=== PATIENT | male | born 1940 | race Caucasian/White ===

== ENCOUNTER 2022-12-23 12:50 | Emergency (ER) | payer MEDICARE, SELFPAY ==
[2022-12-23 12:57] VITALS: BP 117/92; PULSE 70; RESP 16; TEMP 36.4; O2SAT 96
--- NOTE | 2022-12-23 13:06 | ED.GENADUL1 ---
HPI - General Adult General Chief complaint: Urogenital-Male Stated complaint: UTI SYMPTOMS Time Seen by Provider: 12/23/22 13:05 Source: patient Mode of arrival: walk-in History of Present Illness HPI narrative: Patient is a Very pleasant 82-year-old male who is here with his and was sent by his PCP Dr. corral to have a complete urinalysis. Patient's been having some urine sensitivity in the past several days. Patient has no fever, chills, nausea or vomiting. Patient and his just finished having COVID at home for the past couple weeks, patient was on Paxlovid With his in the past 2 weeks. Patient has been sitting around more last few weeks, patient has been increasing fluids, he's had slight increase in urinary frequency in the past several days as well. Patient is a fever or chills. No new flank pain, back pain, no other acute complaints. The pain to testicles, patient states it sensitive when he urinates. . All systems are negative except as noted/marked. All systems reviewed and otherwise negative. . Nurses note and vital signs reviewed and patient is not hypoxic. General: The patient appears well and in no apparent distress. Patient is resting comfortably on cart. Patient is not toxic, lethargic, or listless. Patient looks well, very jovial. Skin: Warm, dry, no pallor noted. There is no rash noted. No petechiae, purpura. Head: Normocephalic, atraumatic Eye: Normal conjunctiva, no drainage, EOMI. PERRL. 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 Ears, Nose, Mouth, and Throat: oral mucosa is moist. Nares patent. Mouth without vesicles. Cardiovascular: Regular Rate and Rhythm, no murmur, gallop, rub Respiratory: Patient is in no distress, no accessory muscle use, lungs are clear to auscultation, no wheezing, rales or rhonchi Back: non-tender, no CVA tenderness bilaterally to percussion. No CT LS midline pain GI: soft, obese, no tenderness to palpation, no masses appreciated. No rebound, guarding, or rigidity noted. No flank pain bilateral, No distention. No flank pain bilateral. No CVA tenderness palpation. : Patient states he had no new rash, no tenderness to Palpation to bilateral, no pain, no new rashes, no signs of trauma. Musculoskeletal: Patient has full range of motion of all of the extremities, no motor, sensory, or focal neurological deficits Neurological: A&O x3, normal speech Psychiatric: Cooperative Related Data Home Medications Medication Instructions Recorded Confirmed metoprolol tartrate 50 mg tablet 50 mg PO BID 12/23/22 12/23/22 Previous Rx's Medication Instructions Recorded phenazopyridine 200 mg tablet 200 mg PO Q8H 2 days #6 tabs 12/23/22 (Pyridium) sulfamethoxazole 800 1 tab PO BID 7 days #14 tabs 12/23/22 mg-trimethoprim 160 mg tablet (Bactrim DS) Allergies Allergy/AdvReac Type Severity Reaction Status Date / Time nirmatrelvir Allergy Severe Verified 12/23/22 12:57 [From Paxlovid (EUA)] ritonavir Allergy Severe Verified 12/23/22 12:57 [From Paxlovid (EUA)] Exam Constitutional Vital Signs, click to edit/add: Last Vital Signs Temp 97.6 F 12/23/22 12:57 Pulse 70 12/23/22 12:57 Resp 16 12/23/22 12:57 BP 117/92 H 12/23/22 12:57 Pulse Ox 95 12/23/22 13:12 O2 Del Method Room Air 12/23/22 13:12 Course Vital Signs Vital signs: Vital Signs Temperature 97.6 F 12/23/22 12:57 Pulse Rate 70 12/23/22 12:57 Respiratory Rate 16 12/23/22 12:57 Blood Pressure 117/92 H 12/23/22 12:57 Pulse Oximetry 96 12/23/22 12:57 Oxygen Delivery Method Room Air 12/23/22 12:57 Temperature 97.6 F 12/23/22 12:57 Pulse Rate 70 12/23/22 12:57 Respiratory Rate 16 12/23/22 12:57 Blood Pressure 117/92 H 12/23/22 12:57 Pulse Oximetry 95 12/23/22 13:12 Oxygen Delivery Method Room Air 12/23/22 13:12 Medical Decision Making MDM Narrative Medical decision making narrative: Patient's urine shows evidence of urinary tract infection, urine culture is ordered. Patient states he's been on Cipro several times in the past, patient was given prescription for Bactrim all urine culture ordered. Patient was given Pyridium. Patient is aware of side effects of Pyridium with red/orange discoloration to his urine. Patient follow-up with PCP as needed. Patient places on his medication. Patient increase fluids. Patient looks well. No questions at discharge Lab Data Labs: Lab Results 12/23/22 Range/Units 13:10 Urine Color Dk. yellow (YELLOW) Urine Clarity Cloudy A (CLEAR) Urine pH 6.5 (5.0-9.0) Ur Specific Brilliant 1.015 (1.005-1.025) Urine Protein 30 A (NEG/TRACE) mg/dL Urine Glucose (UA) Negative (NEGATIVE) mg/dL Urine Ketones Negative (NEGATIVE) mg/dL Urine Occult Blood Small A (NEGATIVE) Urine Nitrite Positive A (NEGATIVE) Urine Bilirubin Small A (NEGATIVE) Urine Urobilinogen 1.0 (0.2-1.0) EU/dL Ur Leukocyte Esterase Large A (NEGATIVE) Urine RBC 0-2 (0-2) #/HPF Urine WBC >100 A (NONE SEEN) #/HPF Ur Squamous Epith Cells None seen (NONE/RARE) #/LPF Urine Crystals None seen (None Seen) #/HPF Urine Bacteria Small A (NONE SEEN) #/HPF Urine Casts None seen (NONE SEEN) #/LPF Urine Mucus None seen (NONE SEEN) Ur Culture Indicated? Yes Discharge Plan Discharge Chief Complaint: Urogenital-Male Clinical Impression: Urinary tract infection Patient Disposition: Home, Self-Care Time of Disposition Decision: 14:04 Condition: Good Prescriptions / Home Meds: New phenazopyridine [Pyridium] 200 mg tablet 200 mg PO Q8H 2 Days Qty: 6 0RF sulfamethoxazole-trimethoprim [Bactrim DS] 800-160 mg tablet 1 tab PO BID 7 Days Qty: 14 0RF No Action metoprolol tartrate 50 mg tablet 50 mg PO BID Instructions: Urinary Tract Infection in Men (ED) Additional Instructions: The pyridium medication that we are prescribing will turn your urine red or orange in the next several days. Increase fluids at home, urine culture is pending. Results of urine culture will be done in 2 or 3 days, If you did not receive a phone call, finished taking antibiotic Stand Alone Forms: Portal Instructions Referrals: LOLIS CORRAL [Primary Care Provider] - 1 week
[2022-12-23 13:12] VITALS: O2SAT 95
[2022-12-23 13:19] LABS: Bilirubin Urine SMALL (NEGATIVE); Blood Urine SMALL (NEGATIVE); Color Urine DK. YELLOW (YELLOW); Glucose Urine UA NEGATIVE (NEGATIVE); Ketones Urine NEGATIVE (NEGATIVE); Leukocyte Esterase Urine LARGE (NEGATIVE); Nitrite Urine POSITIVE (NEGATIVE); Protein Urine 30 mg/dL (NEG/TRACE); Specific Gravity Urine 1.015 (1.005-1.025); pH Urine 6.5 (5.0-9.0)
[2022-12-23 13:21] LABS: Clarity Urine CLOUDY (CLEAR)
[2022-12-23 13:24] LABS: Bacteria Urine SMALL #/HPF (NONE SEEN); Cast Seen? NONE SEEN #/LPF (NONE SEEN); Crystals Seen? None Seen #/HPF (None Seen); Mucus Urine NONE SEEN (NONE SEEN); RBC Urine 0-2 #/HPF (0-2); Squamous Epithelial Cell Urine NONE SEEN #/LPF (NONE/RARE); Urine Culture Indicated YES; WBC Urine >100 #/HPF (NONE SEEN)
== END 2022-12-23 14:12 | disposition home or self-care (01) ==
PROVIDERS: Emergency Provider Emergency Medicine; PCP Family Medicine
DX: N39.0 Urinary tract infection, site not specified (principal); Z86.16 Personal history of COVID-19; Z90.01 Acquired absence of eye; Z85.89 Personal history of malignant neoplasm of other organs and systems; Z79.899 Other long term (current) drug therapy
CPT/HCPCS: 81001; 87086; 87150; 87186; 99283

== ENCOUNTER 2023-10-22 08:29 | Outpatient (OUT) | payer MEDICARE, SELFPAY ==
[2023-10-22 09:09] LABS: Basophils Absolute Auto 0.1 10^3/uL (0.0-0.1); Basophils Percent Auto 1.8 % (0.2-2.0); Eosinophils Absolute Auto 0.3 10^3/uL (0.0-0.7); Eosinophils Percent Auto 4.3 % (0.9-7.0); Hematocrit 49.6 % (42.0-54.0); Hemoglobin 16.5 g/dL (14.0-18.0); Immature Granulocytes Abs Auto 0.01 10^3/uL (0.00-0.03); Immature Granulocytes Pct Auto 0.1 % (0.0-0.5); Lymphocytes Absolute Auto 1.7 10^3/uL (1.2-3.8); Mean Corpuscular HGB Conc 33.3 g/dL (29.9-35.2); Mean Corpuscular Hemoglobin 30.1 pg (25.9-34.0); Mean Corpuscular Volume 90.3 fL (80.0-94.0); Mean Platelet Volume 11.2 fL (9.5-13.5); Monocytes Absolute Auto 0.6 10^3/uL (0.3-0.8); Neutrophils Percent Auto 59.8 % (43.0-75.0); Platelet Count 152 10^3/uL (150-450); Red Blood Count 5.49 10^6/uL (4.70-6.10); Red Cell Distribution Width 15.1 % (11.0-15.0); White Blood Count 6.7 10^3/uL (4.0-11.0)
[2023-10-22 10:33] LABS: Alanine Aminotransferase 18 U/L (16-63); Albumin Level 3.4 g/dL (3.4-5.0); Alkaline Phosphatase 56 U/L (46-116); Anion Gap 12.4; Aspartate Amino Transferase 17 U/L (15-37); BUN Creatinine Ratio 13.3; Bilirubin Total 0.9 mg/dL (0.2-1.0); Carbon Dioxide 26.8 mmol/L (21.0-32.0); Chloride 104 mmol/L (98-107); Chol HDL Ratio 3.7; Cholesterol 169 mg/dL (<=200); Estimated GFR (African America >60 (>=60); Estimated GFR (Non-African Ame >60 (>=60); Globulin 3.3 g/dL; Glucose 108 mg/dL (74-106); HDL Cholesterol 46 mg/dL (40-60); LDL Cholesterol Calculated 103.8 mg/dL; Potassium 4.2 mmol/L (3.5-5.1); Sodium 139 mmol/L (136-145); Thyroid Stimulating Hormone 4.712 uIU/mL (0.358-3.740); Total Protein 6.7 g/dL (6.4-8.2); Triglycerides 96 mg/dL (<=150); VLDL CHOLESTEROL 19.2 mg/dL
[2023-10-22 13:11] LABS: Prostate Specific Antigen Scrn 6.91 ng/mL (<=4.00)
== END 2023-10-22 08:30 | disposition home or self-care (01) ==
LOC: LAB 08:33
PROVIDERS: PCP Family Medicine; Visit Provider Family Medicine
DX: Z00.00 Encounter for general adult medical examination without abnormal findings (principal); Z12.5 Encounter for screening for malignant neoplasm of prostate; I10 Essential (primary) hypertension; M19.90 Unspecified osteoarthritis, unspecified site; C31.0 Malignant neoplasm of maxillary sinus; S05.71XA Avulsion of right eye, initial encounter
CPT/HCPCS: 36415; 80053; 80061; 84436; 84443; 85025; G0103

== ENCOUNTER 2025-02-04 09:51 | Outpatient (OUT) | payer MEDICARE, SELFPAY ==
--- OUTSIDE RECORDS SUMMARY | 2025-02-04 09:57 | XMS_ITS | Clinical Summary ---
Author Organization [facility] Address [id number] [place] [address] Care Team Providers Care Supervisor [employer] Name Role Phone Teja Finney DO Primary Care Provider [phone] Allergies Active AllergyReactionsCriticalityNoted XjprQtcmtlwlQkyewkcyyqy59/24/2018 Ltsljuyxmayy06/24/2018 Medications MedicationSigDispense QuantityRefillsLast FilledStart DateEnd DateStatus NYSTATIN ORAL Take 500,000 Unit by mouth 4 (four) times a day.Active acetaminophen (TYLENOL) 500 mg tablet Take 500 mg by mouth every 6 (six) hours as needed for pain. SAYS PEG TUBE AND PATIENT IS TAKING HIS MEDS ORALLYActive diphenhydrAMINE (SOMINEX) 25 mg tablet Take 25 mg by mouth every 6 (six) hours as needed for itching.Active cholecalciferol, vitamin D3, 2,000 units tablet Take 2,000 Units by mouth daily.Active digoxin (LANOXIN) 250 mcg tablet Take 250 mcg by mouth daily.Active IPRATROPIUM BROMIDE INHL Inhale 1 inhalation every 6 (six) hours as needed (SOB).Active loratadine (CLARITIN) 10 mg tablet Take 10 mg by mouth daily.Active metoprolol tartrate (LOPRESSOR) 50 mg tablet Take 50 mg by mouth 2 (two) times a day.Active VIT C/VIT E ACET/LUTEIN/MIN (OCUVITE LUTEIN ORAL) Take 1 tablet by mouth daily.Active omeprazole (PriLOSEC) 20 mg capsule Take 20 mg by mouth daily.Active ostomy supplies (ADHESIVE BARRIERS) misc Apply 1 application topically as needed (SKIN IRRITATION). PINXAVActive potassium chloride 20 mEq tablet extended release Take 20 mEq by mouth 4 (four) times a day.Active SODIUM CHLORIDE (SALINE NASAL NASL) Inhale 2 sprays 2 (two) times a day.Active SODIUM BICARBONATE ORAL Take 650 mg by mouth 4 (four) times a day.Active sulfamethoxazole-trimethoprim (BACTRIM,SEPTRA) 200-40 mg/5 mL suspension Take 5 mL by mouth 2 (two) times a day.Active Social History Tobacco UseTypesPacks/DayYears UsedDateSmoking Tobacco: Never AssessedChildcare AnswerDate FzuhklyuCxwbeuzltEykbuhe47/12/2019EmploymentAnswerDate Recorded XvoivsxyffGjqsefr26/12/2019Purpose - LifeAnswerDate RecordedPurpose and direction in lvloMiljqim43/11/2021Sex and Gender InformationValueDate Recorded Sex Assigned at BirthNot on fileLegal IzfBkgw9110/27/2014 12:11 PM EDTGender IdentityNot on fileSexual OrientationNot on file Last Filed Vital Signs Vital SignReadingTime TakenCommentsBlood Vlqmzggv274/70005/01/2017 5:43 PM EST Mtcgm189805/01/2017 5:43 PM XJADmtwdgjaltz19.7 ??C (98.1 ??F)05/01/2017 5:43 PM ESTRespiratory Grxa032205/01/2017 5:43 PM ESTOxygen Dgvwbxiqen26%05/01/2017 5:43 PM ESTInhaled Oxygen Concentration--Ghagnq549.8 kg (242 lb)04/23/2017 2:41 PM NWSJmpcpw459.7 cm (6' 7 )04/16/2017 12:37 PM ESTBody Mass Index27.26004/16/2017 12:37 PM EST Plan of Treatment Not on file Medical Devices Not on file Insurance Care Teams Team MemberRelationshipSpecialtyStart DateEnd Date Teja Finney DO PCP - General04/15/17
--- OUTSIDE RECORDS SUMMARY | 2025-02-04 09:57 | XMS_ITS | Clinical Summary ---
Author Organization [facility] Address [address] [place] [address] Care Team Providers Care Net Developer Architect Name Role Phone Unavailable Primary Care Provider Unavailabl e Social History Tobacco UseTypesPacks/DayYears UsedDateSmoking Tobacco: Never AssessedSex and Gender InformationValueDate RecordedSex Assigned at BirthNot on fileLegal Sex Male06/05/2022 6:54 PM EDTGender IdentityNot on fileSexual OrientationNot on file Last Filed Vital Signs Vital SignReadingTime TakenCommentsBlood Bnvvtqur081/7404/30/2017 12:00 PM EST Pulse--Temperature--Respiratory Rate--Oxygen Saturation--Inhaled Oxygen Concentration--Leerpe095 kg (235 lb)04/30/2017 12:00 PM EODHihfcg874.2 cm (5' 7 )04/30/2017 12:00 PM ESTBody Mass Index36.8104/30/2017 12:00 PM EST Plan of Treatment Not on file Insurance
--- OUTSIDE RECORDS SUMMARY | 2025-02-04 09:57 | XMS_ITS | Clinical Summary ---
Author Organization [facility] Address [address] 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 Role Phone Teja Finney DO Primary Care Provider [phone] Social History Tobacco UseTypesPacks/DayYears UsedDateSmoking Tobacco: Never AssessedSex and Gender InformationValueDate RecordedSex Assigned at BirthNot on fileLegal Sex Male02/15/2022 4:25 PM ESTGender IdentityNot on fileSexual OrientationNot on file Last Filed Vital Signs Vital SignReadingTime TakenCommentsBlood Qsdtdnfs274/8505 10:19 AM EDT Pulse--Rpvuwfzkcui19.1 ??C (98.7 ??F)08/15/2020 10:19 AM EDTRespiratory Rate-- Oxygen Saturation--Inhaled Oxygen Concentration--Yfncti796 kg (273 lb)06/29/2021 12:51 PM RLMMxeglc069.2 cm (5' 7 )06/29/2021 12:51 PM EDTBody Mass Index42.76 06/29/2021 12:51 PM EDT Plan of Treatment Not on file Advance Directives For more information, please contact: [phone] (Available ) TypeDate RecordedPatient RepresentativeExplanationAdvance Directives and Living Will05/27/2016Healthcare Power of Atty06/04/2012 Care Teams Team MemberRelationshipSpecialtyStart DateEnd Teja Romo DO PCP - General04/03/12
[2025-02-04 10:21] LABS: Hematocrit 47.6 % (42.0-54.0); Hemoglobin 16.2 g/dL (14.0-18.0); Immature Granulocytes Abs Auto 0.02 10^3/uL (0.00-0.03); Immature Granulocytes Pct Auto 0.3 % (0.0-0.5); Lymphocytes Absolute Auto 1.6 10^3/uL (1.2-3.8); Mean Corpuscular HGB Conc 34.0 g/dL (29.9-35.2); Mean Corpuscular Hemoglobin 29.9 pg (25.9-34.0); Mean Corpuscular Volume 87.8 fL (80.0-94.0); Platelet Count 158 10^3/uL (150-450); Red Blood Count 5.42 10^6/uL (4.70-6.10); White Blood Count 7.3 10^3/uL (4.0-11.0)
[2025-02-04 11:30] LABS: Alanine Aminotransferase 25 U/L (16-63); Albumin Globulin Ratio 0.9; Albumin Level 3.3 g/dL (3.4-5.0); Alkaline Phosphatase 78 U/L (46-116); Anion Gap 9.7; Aspartate Amino Transferase 19 U/L (15-37); Blood Urea Nitrogen 15.0 mg/dL (7.0-18.0); Calcium 8.8 mg/dL (8.5-10.1); Carbon Dioxide 26.3 mmol/L (21.0-32.0); Chloride 106 mmol/L (98-107); Estimated GFR (African America >60 (>=60 mL/min/1.73m^2); Estimated GFR (Non-African Ame >60 (>=60 mL/min/1.73m^2); Globulin 3.6 g/dL; Glucose 130 mg/dL (74-106); Potassium 4.0 mmol/L (3.5-5.1); Sodium 138 mmol/L (136-145); Total Protein 6.9 g/dL (6.4-8.2)
== END 2025-02-04 09:52 | disposition home or self-care (01) ==
LOC: LAB 09:55
PROVIDERS: PCP Family Medicine; Visit Provider Family Medicine
DX: C31.0 Malignant neoplasm of maxillary sinus (principal); S05.71XA Avulsion of right eye, initial encounter; E78.5 Hyperlipidemia, unspecified; I10 Essential (primary) hypertension; R60.0 Localized edema; Z12.5 Encounter for screening for malignant neoplasm of prostate
CPT/HCPCS: 36415; 80053; 85025; G0103